=== PATIENT | male | born 1985 | race Caucasian/White ===

== ENCOUNTER 2021-06-22 15:11 | Emergency (ER) | payer OTHER, SELFPAY ==
--- NOTE | 2021-06-22 15:27 | ED.EYEPROB ---
HPI - Eye Problem General Chief complaint: Eye Problems Stated complaint: fb in eye and congestion Time Seen by Provider: 06/22/21 15:18 Source: patient and RN notes reviewed History of Present Illness HPI Narrative: Patient is a 36-year-old male who presents the urgent care with complaints of a possible foreign body to the left eye and sinus congestion. Patient states that sinus congestion started approximately 5 days ago and he has had green nasal drainage and has been using Sudafed. Patient denies of any headache, sore throat, nausea or vomiting. Patient states a foreign body in the eye happened approximately 2 hours ago while he was cleaning out his truck. Patient states he is tried to use eyewash without any improvement. Denies of any vision changes. No other acute complaints. No acute distress noted. Patient aware of the plan of care. Some parts of this dictation were generated by voice recognition software and may contain typographical and/or grammatical inaccuracies. Related Data Home Medications Medication Instructions Recorded Confirmed buprenorphine-naloxone See Rx Instructions .ROUTE .COMPLEX 06/22/21 06/22/21 Allergies Allergy/AdvReac Type Severity Reaction Status Date / Time No Known Allergies Allergy Verified 06/22/21 15:48 Review of Systems Review of Systems: CONSTITUTIONAL: Denies fever, chills, or sweats. EYES: Denies visual changes, redness, or discharge. Reports of possible foreign body to the left eye with slight pain ENT: Denies rhinorrhea,sore throat, or otalgia. Reports of sinus congestion CARDIOVASCULAR: Denies chest pain, palpitations, or edema. RESPIRATORY: Denies cough or dyspnea. GASTROINTESTINAL: Denies abdominal pain, nausea, vomiting, or diarrhea. GENITOURINARY: Denies dysuria or hematuria. SKIN: Denies rash or itching. MUSCULOSKELETAL: Denies back pain, joint pain, or myalgia. NEUROLOGIC: Denies headache, numbness, or weakness. All other systems reviewed are negative, except as documented in HPI. PMFSH Comments At the time of my signature, I reviewed and agree with the nursing past medical, surgical, social, and family history. There is no relevant family history pertinent to the patient complaint. Exam Narrative: GENERAL: This is a well-nourished, well-developed patient, in no apparent distress. HEAD: normocephalic, atraumatic. EYES: PERRL. Sclera clear/white. Vision is grossly intact. Clear drainage from the left eye. Notable foreign body to the iris at approximately 7:00. EARS: External ears normal, auditory canals clear and without drainage, TMs normal without perforation. Hearing grossly intact. NOSE: External nose normal with no obvious nasal discharge, nares without redness, clear rhinorrhea. THROAT: Mucous membranes moist, posterior pharynx clear. Mild postnasal drainage NECK: Neck supple CARDIOVASCULAR: Regular rate and rhythm without murmurs, gallops, or rubs. RESPIRATORY: Clear to auscultation. Breath sounds equal bilaterally. No wheezes, rales, or rhonchi. SKIN: warm, intact with no suspicious lesions or rash, good texture and turgor. NEURO: awake, alert, and oriented to person, place and time. There were no obvious focal neurologic abnormalities. EXTREMITIES: No clubbing, cyanosis, or edema. Course Course Level of Care: Express Care Visit Vital Signs Vital signs: Vital Signs Temperature 99.5 F 06/22/21 15:28 Pulse Rate 79 06/22/21 15:28 Respiratory Rate 18 06/22/21 15:28 Blood Pressure 136/68 06/22/21 15:28 Pulse Oximetry 98 06/22/21 15:28 Temperature 99.5 F 06/22/21 15:28 Pulse Rate 79 06/22/21 15:28 Respiratory Rate 18 06/22/21 15:28 Blood Pressure 136/68 06/22/21 15:28 Pulse Oximetry 98 06/22/21 15:28 Reviewed Procedures FB Removal Eye Foreign Body #1: Location: eye (L) Topical anesthetic used: tetracaine Foreign body: other (Unknown foreign body) Evidence of corneal penetration: No
[2021-06-22 15:28] VITALS: BP 136/68; PULSE 79; RESP 18; TEMP 37.5; O2SAT 98
== END 2021-06-22 16:10 | disposition home or self-care (01) ==
PROVIDERS: Emergency Provider Nurse Practitioner Family
DX: T15.82XA Foreign body in other and multiple parts of external eye, left eye, initial encounter (principal); X58.XXXA Exposure to other specified factors, initial encounter; J32.9 Chronic sinusitis, unspecified; Z86.16 Personal history of COVID-19
CPT/HCPCS: 99213; A9270; G0463